=== PATIENT | female | born 1990 | race African-American/Black ===

== ENCOUNTER 2025-04-26 22:49 | Emergency (ER) | payer OTHER, SELFPAY ==
[2025-04-26 22:51] VITALS: BP 146/98
[2025-04-26 23:17] VITALS: BMI 48.5
--- NOTE | 2025-04-26 23:29 | ED.GENMED ---
History of Present Illness
General
Chief Complaint: DVT/Possible Blood Clot
Source: patient
Exam Limitations: none
Time Seen by Provider: 04/26/25 23:13
History of Present Illness
History of Present Illness:
35yoF with no significant past medical history presenting for evaluation of left calf pain. Patient reports pain and tightness in her left calf over the past week. She denies any trauma or inciting incident. She is worried that she has a blood
clot after researching her symptoms online. She felt short of breath at one point last week but this has resolved. She has no current dyspnea. She is otherwise asymptomatic and denies any chest pain or syncope. No recent travel or tobacco use.
No personal or family history of VTE.
Past History
Past History
ED Past Medical History: Other (Optic neuritis)
ED Past Surgical History: None
Social History
Tobacco: Non-smoker
Alcohol: None
Drug: None
Personal: Single
Living: with family
Employment: Employed
Phy Exam
General Physical Exam
General Presentation: well appearing and no apparent distress
General Skin: warm and dry
General Habitus: normal
General Mental: alert
ENT Exam
ENT Exam: normocephalic
Cardiovascular Exam
Cardiovascular Exam: regular rate/rhythm
Pulmonary Exam
Pulmonary Exam: lungs clear, no respiratory distress, no rales, no crackles, no rhonchi and no wheezing
Neurological Exam
Neurological Exam: alert
[place] Coma Scale
Eye Opening: Spontaneous
Verbal Response: Oriented
Motor Response: Obeys Commands
GCS Total Score: 15
Musculoskeletal Exam
Musculoskeletal Exam: other (No pitting edema or skin changes noted in LLE. Extremity is warm and well perfused with 2+ DP pulse.)
Skin Exam
Skin Exam: normal color and warm/dry
Psychiatric Exam
Psychiatric Exam: normal mood/affect
Course
Orders/Labs/Results
Orders:
Orders
04/26/25 23:13
Venous Doppler Lwr Ext Left [US Periph Venous LOWER Ext LT] Urgent
Comment:
Reason For Exam: L calf pain
Vital Signs
Initial and Last Documented VS:
Initial Vital Signs
Temp Pulse Resp BP Pulse Ox
97.8 F 94 18 146/98 99
04/26/25 22:51 04/26/25 22:51 04/26/25 22:51 04/26/25 22:51 04/26/25 22:51
Last Documented Vital Signs
Temp Pulse Resp BP Pulse Ox
97.8 F 94 18 146/98 96
04/26/25 22:51 04/26/25 22:51 04/26/25 22:51 04/26/25 22:51 04/26/25 23:30
MDM/Problems Addressed
Differential Diagnosis Includes:
35yoF here with atraumatic L calf pain x 1 week. VSS. She is well appearing in no distress. No pitting edema or skin changes on exam. LLE is neurovascularly intact with 2+ DP pulse. Differential diagnosis includes: DVT, Pedroza's cyst, muscular strain
Venous duplex obtained and preliminary [facility] read is negative for DVT. Patient stable for discharge. Supportive care discussed and advised f/u with PCP if symptoms persist.
*Pulse Oximetry
SaO2: 96
Oxygen Mode of Delivery: Room air
Patient hypoxic: no
*Critical Care Note
Total Time (30-74mins, 75-104mins- exclusive of procedures): Not Applicable
ED Attending Note
-
Portions of this chart may have been created with voice recognition software.� Occasional wrong word or��sound alike� substitutions may have occurred due to the inherent limitations of voice recognition software.
Discharge Plan
Departure
Patient Disposition: Home (Routine Discharge)
Date of Disposition: 04/27/25
Time of Disposition: 00:07
Patient with high blood pressure during this ER visit?: Yes
Discharge Problem:
Pain of left calf
Instructions: Muscle, joint, and bone pain (DC)
Prescriptions:
No Action
Vitamins Tab
1 tab PO DAILY
acetaminophen 325 MG tablet
650 mg PO Q4HPRN PRN (Reason: mild pain) 0RF
sennosides-docusate sodium 1 TABLET tablet
1 tab PO DAILYPRN PRN (Reason: constipation) Qty: 30 0RF
ibuprofen 600 MG tablet
600 mg PO Q6HPRN PRN (Reason: moderate pain/cramps) Qty: 60 0RF
Referrals:
[facility] [Provider Group]
NONE,* [Family Provider, Internal Medicine]
Activity Restrictions/Additional Instructions:
Ultrasound is negative for blood clots.
Apply heat to affected area. Take Tylenol and ibuprofen as needed for pain.
Please follow-up with your family doctor if symptoms persist.
Interventions
Interventions:
*Risk Screen - Suicide Last Done: 04/26/25 22:51
*General Assessment Last Done: 04/26/25 22:51
*Neglect/Abuse Screening Last Done: 04/26/25 22:51
*ED- Fall Risk Assessment Last Done: 04/26/25 23:20
*ED COVID-19 Vaccine History Last Done: 04/26/25 23:20
*ED Influenza Vaccine History Last Done: 04/26/25 23:20
ED- Cardiac Assessment Last Done: 04/26/25 23:23
ED- Pulmonary Assessment Last Done: 04/26/25 23:24
ED-Peripheral Vascular Assessment Last Done: 04/26/25 23:25
ED-Skin Assessment Last Done: 04/26/25 23:29
Discharge Date and Time
Print Language: ALB[place]
[2025-04-27 00:35] VITALS: BP 140/98
== END 2025-04-27 00:37 | disposition home or self-care (01) ==
LOC: EMR 22:49
PROVIDERS: EMERGENCY PHYSICIAN Emergency Medicine
DX: M79.662 Pain in left lower leg (principal)
CPT/HCPCS: 99284; 93971